=== PATIENT | female | born 1960 | race Caucasian/White ===

== ENCOUNTER 2022-07-24 09:55 | Inpatient (IN) | payer OTHER ==
[2022-07-24] MEDS ORDERED: Albuterol/Ipratropium 3.0-0.5 MG/3 ML Neb Soln NEB ONE (10:52)
[2022-07-24] MEDS ORDERED: Sodium Chloride 0.9% 500 ML IV ONE (11:40)
[2022-07-24] MEDS ORDERED: Potassium Chloride 20 MEQ Tab.ER PO ONE (11:41)
[2022-07-24 13:13] LABS: CORONAVIRUS COVID-19 NAA NEGATIVE (NEGATIVE)
[2022-07-24] MEDS: cefTRIAXone 1 GM in Sodium Chloride 0.9% 50 ML IV SCH (14:13)
[2022-07-24] MEDS ORDERED: Doxycycline 100 MG in Sodium Chloride 0.9% 100 ML IV SCH (14:30)
[2022-07-24] MEDS ORDERED: Nicotine Polacrilex 2 MG Gum CHEW PRN (14:58)
[2022-07-24] MEDS ORDERED: Sodium Chloride 0.9% 1,000 ML IV SCH ×3 (15:00→23:30)
[2022-07-24] MEDS ORDERED: Ondansetron 4 MG/2 ML SDV IV PRN (15:00)
[2022-07-24] MEDS ORDERED: Acetaminophen 325 MG Tab PO PRN (15:00)
[2022-07-24] MEDS ORDERED: Sodium Chloride 0.9% 10 ML Syringe FLUSH PRN (15:00)
[2022-07-24] MEDS: Nicotine 21 MG/24 Hr Patch TRDERM SCH (15:46)
[2022-07-24] MEDS: Enoxaparin 40 MG/0.4 ML Syringe SUBCUT SCH (15:47)
[2022-07-24] MEDS ORDERED: [UNRECOGNIZED DRUG - REMARK] TOP PRN (19:22)
[2022-07-24] MEDS: Cyclobenzaprine 10 MG Tab PO PRN (19:35)
[2022-07-24] MEDS: traZODone 50 MG Tab PO SCH (21:35)
[2022-07-24] MEDS: Gabapentin 300 MG Cap PO SCH (21:35)
[2022-07-24] MEDS: oxyCODONE 5 MG Tab PO PRN (21:39)
[2022-07-25] MEDS ORDERED: Doxycycline 100 MG in Sodium Chloride 0.9% 100 ML IV SCH (03:00)
[2022-07-25] MEDS ORDERED: TACROLIMUS 0.1% TOP PRN (08:29)
[2022-07-25] MEDS: Gabapentin 300 MG Cap PO SCH ×2 (08:53→21:52)
[2022-07-25] MEDS: Nicotine 21 MG/24 Hr Patch TRDERM SCH (08:53)
[2022-07-25] MEDS: Magnesium Oxide 400 MG Tab PO SCH ×2 (08:53→21:52)
[2022-07-25] MEDS ORDERED: Potassium Chloride 20 MEQ Tab.ER PO ONE (09:00)
[2022-07-25] MEDS: Albuterol 0.083% 2.5 MG/3 ML Neb Soln NEB PRN ×2 (09:05→12:32)
[2022-07-25] MEDS: Magnesium Sulfate/Water 2 GM in Premix Bag 1 BAG IV SCH ×2 (09:12→15:49)
[2022-07-25] MEDS ORDERED: Sodium Chloride 0.9% 10 ML Syringe FLUSH ONE (10:53)
[2022-07-25] MEDS ORDERED: Iopamidol 612 MG/ML 100 ML Bottle IV ONE (10:53)
[2022-07-25] MEDS ORDERED: Sodium Chloride 0.9% 50 ML IV ONE (10:53)
[2022-07-25] MEDS ORDERED: Sodium Chloride 0.9% 1,000 ML IV SCH (11:45)
[2022-07-25] MEDS: Acetylcysteine 20% 200 MG/ML 4 ML Nebulizer Soln SDV NEB SCH ×2 (12:32→21:55)
[2022-07-25] MEDS ORDERED: Lidocaine 1% 20 ML MDV INJECT ONE (12:46)
[2022-07-25] MEDS: DEMECLOCYCLINE 300 MG PO SCH ×2 (13:23→19:43)
[2022-07-25] MEDS: cefTRIAXone 1 GM in Sodium Chloride 0.9% 50 ML IV SCH (14:27)
[2022-07-25] MEDS: Enoxaparin 40 MG/0.4 ML Syringe SUBCUT SCH (15:54)
[2022-07-25] MEDS: traZODone 50 MG Tab PO SCH (21:52)
[2022-07-25] MEDS: Cyclobenzaprine 10 MG Tab PO PRN (21:57)
[2022-07-26] MEDS: oxyCODONE 5 MG Tab PO PRN (01:44)
[2022-07-26] MEDS: Albuterol 0.083% 2.5 MG/3 ML Neb Soln NEB PRN (06:57)
[2022-07-26] MEDS: Acetylcysteine 20% 200 MG/ML 4 ML Nebulizer Soln SDV NEB SCH (06:57)
[2022-07-26] MEDS ORDERED: DEMECLOCYCLINE 300 MG PO SCH (07:30)
[2022-07-26] MEDS: Nicotine 21 MG/24 Hr Patch TRDERM SCH (08:14)
[2022-07-26] MEDS: Gabapentin 300 MG Cap PO SCH (08:16)
[2022-07-26] MEDS: Magnesium Oxide 400 MG Tab PO SCH (08:16)
[2022-07-26 11:07] VITALS: BP 142/98; PULSE 110
== END 2022-07-26 13:10 | disposition home or self-care (01) | DRG 643 ==
LOC: JP.ED 09:55 → JP.MS 13:40
PROVIDERS: ADMIT Hospitalist; ATTEND Hospitalist
DX: E22.2 Syndrome of inappropriate secretion of antidiuretic hormone (principal); J18.9 Pneumonia, unspecified organism; R59.0 Localized enlarged lymph nodes; D49.1 Neoplasm of unspecified behavior of respiratory system; F17.200 Nicotine dependence, unspecified, uncomplicated; Z20.822 Contact with and (suspected) exposure to COVID-19; J44.9 Chronic obstructive pulmonary disease, unspecified; H54.7 Unspecified visual loss; Z79.899 Other long term (current) drug therapy
CPT/HCPCS: 0241U; 36415; 38505; 70491; 70491-26; 71250; 71250-26; 74177; 74177-26; 76942; 76942-26; 80048; 82803; 83735; 84145; 84295; 85025; 85027; 85610; 85730; 87040; 94640; 96365; 96366; 96367; 99222; 99238; 99285-25; A9270-GY; J0696; J1650; J3475; J3490; J7030; J7040; J7620; Q9967